=== PATIENT | female | born 1950 | race Caucasian/White ===

== ENCOUNTER 2018-10-02 17:19 | Inpatient (IN) | payer MEDICARE, MEDICAID ==
[~2018-10-02] VITALS: Ht 162.6 cm; Wt 72.6 kg
--- NOTE | 2018-10-02 18:00 | NUR ---
PT ROOMED TO ER BED 04. BIBRA FROM HOME C/O DIFFUSE ABDOMINAL PAIN X 4 DAYS. STATES CONSTIPATED AND LAST BOWEL MOVEMENT WAS 4 DAYS AGO. STABLE VITALS. AWAITING MD MINAYA.
--- NOTE | 2018-10-02 18:58 | NUR ---
DR CHING AT BEDSIDE FOR EVAL.
--- NOTE | 2018-10-02 19:15 | NUR ---
REPORT GIVEN TO KANDI HERNANDEZ FOR ANEUDY.
--- NOTE | 2018-10-02 19:20 | NUR ---
RADIOLOGY AT BEDSIDE FOR XRAY.
[2018-10-02] MEDS ORDERED: IV NS 0.9% 500 ML BAG IV ONE ×2 (19:30→21:30)
[2018-10-02] MEDS ORDERED: HYDROMORPHONE 1 MG/1 ML DISP.SYRIN IV ONE (19:30)
[2018-10-02] MEDS ORDERED: HYDROMORPHONE INJ 0.5 MG/0.5 ML SYRINGE ONE ×2 (19:39→21:16)
[2018-10-02 19:52] LABS: BASOPHILS % (AUTO) 0.1 % (0.0-2.0); EOSINOPHILS % (AUTO) 0.3 % (0.0-6.0); HEMATOCRIT 36 % (33-45); HEMOGLOBIN 12.3 g/dL (11.5-14.8); LYMPHOCYTES # (AUTO) 0.7 /CMM (0.8-4.8); LYMPHOCYTES % (AUTO) 8.7 % (20.0-44.0); MEAN CORPUSCULAR HGB CONC 34 g/dl (31.0-36.0); MEAN CORPUSCULAR VOLUME 94 fL (82-100); MONOCYTES # (AUTO) 0.6 /CMM (0.1-1.30); MONOCYTES % (AUTO) 6.9 % (2.0-12.0); PLATELET COUNT (AUTO) 306 /CMM (150-450); RED BLOOD CELL COUNT(AUTO) 3.84 MIL/uL (4.0-5.2); WHITE BLOOD COUNT (AUTO) 8.4 K/uL (4.3-11.0)
[2018-10-02 20:09] LABS: CALCIUM, SERUM 9.7 mg/dL (8.5-10.1); CARBON DIOXIDE 22 mmol/L (21-32); CHLORIDE 102 mmol/L (98-107); CREATININE 1.8 mg/dL (0.6-1.3); GLUCOSE 112 mg/dL (74-106); POTASSIUM 3.5 mmol/L (3.5-5.1); SODIUM SERUM 135 mmol/L (136-145); UREA NITROGEN, BLOOD 47 mg/dL (7-18)
[2018-10-02 20:15] LABS: ALANINE AMINOTRANSFERASE 31 U/L (12-78); ALBUMIN 3.4 g/dL (3.4-5.0); ALKALINE PHOSPHATASE 193 U/L (46-116); ASPARTATE AMINOTRANSFERASE 48 U/L (15-37); BILIRUBIN,DIRECT 0.6 mg/dL (0.0-0.2); BILIRUBIN,TOTAL 1.2 mg/dL (0.2-1.0); LIPASE 38 U/L (73-393); TOTAL PROTEIN, SERUM 7.9 g/dL (6.4-8.2)
--- NOTE | 2018-10-02 20:19 | NUR ---
Radiology at bedside for consent for CT w/ contrast.
--- NOTE | 2018-10-02 20:30 | NUR ---
Pt taken to CT.
[2018-10-02] MEDS ORDERED: IOHEXOL-300 100 ML VIAL IV ONE (20:34)
[2018-10-02] MEDS ORDERED: CT SWABBABLE VALVE TRANS SET 1 EA INFUS.SET MC ONE (20:35)
[2018-10-02] MEDS ORDERED: IV NS 0.9% 250 ML IV ONE (20:35)
[2018-10-02 20:36] LABS: APPEARANCE,URINE Clear (CLEAR); BILIRUBIN,URINE SMALL (NEGATIVE); BLOOD, URINE Moderate Ery/uL (NEGATIVE); COLOR,URINE Yellow (YELLOW); KETONES,URINE Negative (NEGATIVE); LEUKOCYTE ESTERASE ,URINE Negative (NEGATIVE); NITRITE, URINE Negative (NEGATIVE); PROTEIN,URINE 100 mg/dl (NEGATIVE); UGLUCOSE Negative (NEGATIVE); UROBILINOGEN,URINE 0.2 EU/dL (0.2)
[2018-10-02 20:46] LABS: BACTERIA,URINE 1+ /HPF (None Seen); SQUAMOUS EPITHELIAL CELL,UR Few /HPF (None Seen)
--- NOTE | 2018-10-02 20:54 | NUR ---
Pt returned from CT and put on the monitor.
--- NOTE | 2018-10-02 21:00 | NUR ---
Pt yelling at the complaining, "nothing gets done in the hospital." Pt wanting water, but was told she is unable to drink anything until we recieve the results from the CT.
--- NOTE | 2018-10-02 21:14 | NUR ---
Pt complaining of pain in the abdomen and shoulder. ER MD aware. Will carry out orders.
[2018-10-02] MEDS ORDERED: HYDROMORPHONE INJ 0.5 MG/0.5 ML SYRINGE IV ONE (21:30)
--- NOTE | 2018-10-02 21:51 | NUR ---
Filer Repairer at bedside for lab draw.
[2018-10-02] MEDS ORDERED: PIPERACILLIN /TAZOBACTAM 3.375 G VIAL IV ONE (22:06)
--- NOTE | 2018-10-02 22:16 | NUR ---
Ultrasound at bedside.
[2018-10-02] MEDS ORDERED: PIPERACILLIN /TAZOBACTAM 3.375 G in IV D5W 50 ML IV ONE (22:30)
--- NOTE | 2018-10-02 22:33 | NUR ---
Called Dr Miguelito Smyth (Surgeon) and left a voicemail for call back.
--- NOTE | 2018-10-02 22:51 | NUR ---
Called [facility] for panel call and a page was sent out to Robyn Khan.
--- NOTE | 2018-10-02 23:33 | NUR ---
Report given to Constance HERNANDEZ for ANEUDY.
--- NOTE | 2018-10-03 | NUR ---
RECEIVED PT FROM E.R SERVICES VIA [facility] AT 0762 10/02/18. ADMIT TO MS. PT A/O X 3 WITH PERIOD OF FORGETFULNESS. RESPIRATIONS EVEN AND UNLABORED. STABLE, NO NAUSEA AND VOMITING. KEPT CLEAN, DRY AND COMFORTABLE. NURSING CARE RENDERED. PT IRRITABLE AND WANTED TO SLEEP UNABLE TO DO BODY FULL ASSESSMENT PT REFUSED TO BE TOUCH PT VERBALIZED "LEAVE ME ALONE I JUST WANNA REST" PT REFUSED REMOVE GOWN DESPITE EXPLAINING RISKS AND BENEFITS OFFERED 3 TIMES STILL REFUSED. HOSPITALIST AWARE. PT MAINTAIN ON NPO FOR MRCP PER PT SHE WILL SIGN CONSENT IN THE AM. WILL CONT TO MTR.
[2018-10-03 00:25] VITALS: BP 146/73
[2018-10-03] MEDS ORDERED: ZOLPIDEM TARTRATE 5 MG TABLET PO PRN (00:30)
[2018-10-03] MEDS ORDERED: ONDANSETRON HCL/PF 4 MG/2 ML VIAL IVP PRN (00:30)
[2018-10-03] MEDS ORDERED: MAGNESIUM HYDROXIDE 30 ML UDC PO PRN (00:30)
[2018-10-03] MEDS ORDERED: DEXTROSE 50%-WATER 50 ML DISP.SYRIN IV PRN (00:30)
[2018-10-03] MEDS ORDERED: ACETAMINOPHEN 325 MG TABLET PO PRN (00:30)
[2018-10-03] MEDS ORDERED: Z GUARD REMEDY 2 OZ OINT TP PRN (00:30)
[2018-10-03] MEDS: IV NS 0.9% 1,000 ML IV PRN ×2 (01:16→20:45)
[2018-10-03] MEDS: HYDROMORPHONE 1 MG/1 ML DISP.SYRIN IV PRN ×4 (02:45→20:38)
[2018-10-03] MEDS ORDERED: PIPERACILLIN /TAZOBACTAM 3.375 G in IV D5W 50 ML IV SCH (04:00)
[2018-10-03] MEDS ORDERED: PIPERACILLIN /TAZOBACTAM 3.375 G VIAL IV ONE (04:59)
[2018-10-03] MEDS ORDERED: PIPERACILLIN /TAZOBACTAM 3.375 G in IV D5W 50 ML IV ONE (05:00)
[2018-10-03] MEDS: INSULIN REGULAR, HUMAN 100 UNIT/ML 3 ML VIAL SQ PRN ×3 (05:29→23:47)
[2018-10-03] MEDS: BLOOD SUGAR DIAGNOSTIC 1 EACH STRIP IN SCH ×4 (05:29→23:47)
[2018-10-03 06:30] LABS: BASOPHILS % (AUTO) 0.1 % (0.0-2.0); EOSINOPHILS % (AUTO) 0.6 % (0.0-6.0); HEMATOCRIT 33 % (33-45); HEMOGLOBIN 11.4 g/dL (11.5-14.8); LYMPHOCYTES % (AUTO) 11.9 % (20.0-44.0); MEAN CORPUSCULAR HGB CONC 35 g/dl (31.0-36.0); MEAN CORPUSCULAR VOLUME 93 fL (82-100); MONOCYTES # (AUTO) 0.9 /CMM (0.1-1.30); MONOCYTES % (AUTO) 10.7 % (2.0-12.0); NEUTROPHILS # (AUTO) 6.7 /CMM (1.8-8.9); NEUTROPHILS % (AUTO) 76.7 % (43.0-81.0); PLATELET COUNT (AUTO) 292 /CMM (150-450); RED BLOOD CELL COUNT(AUTO) 3.54 MIL/uL (4.0-5.2); WHITE BLOOD COUNT (AUTO) 8.7 K/uL (4.3-11.0)
--- NOTE | 2018-10-03 06:38 | NUR ---
RN CLOSING NOTE PT IN BED ASLEEP AND EASILY AWAKEN A/O X 2-3 PERIOD OF FORGETFULNESS 02 SAT 95% TOLERATING ROOM AIR. STABLE CONDITION, NOT IN DISTRESS. RESPIRATIONS EVEN AND UNLABORED. NURSING CARE RENDERED, NO COMPLAIN OF PAIN AT THIS TIME. KEPT CLEAN AND DRY AND COMFORT, PT WANTS TO SIGN CONSENT LATER MORNING FOR MRCP. MAINTAINS NPO. PT STILL REFUSED FULL SKIN BODY ASSESSMENT. SAFETY MEASURES IN PLACE, CALL LIGHT WITHIN REACH. WILL ENDORSE TO FLUE LINING DIPPER FOR ANEUDY.
[2018-10-03 06:48] LABS: ALBUMIN 2.9 g/dL (3.4-5.0); BILIRUBIN,TOTAL 1.3 mg/dL (0.2-1.0); CALCIUM, SERUM 8.9 mg/dL (8.5-10.1); CREATININE 1.1 mg/dL (0.6-1.3); PHOSPHORUS 2.4 mg/dL (2.5-4.9); POTASSIUM 3.2 mmol/L (3.5-5.1); TOTAL PROTEIN, SERUM 6.8 g/dL (6.4-8.2)
--- NOTE | 2018-10-03 07:20 | NUR ---
MS/RN OPENING NOTE PATIENT IN BED IN STABLE CONDITION. A/O X 2-3 WITH EPISODES OF FORGETFULNESS. NO SIGNS OF ACUTE DISTRESS. NO COMPLAIN OF PAIN OR DISCOMFORT. NPO STATUS AT THIS TIME SECONDARY TO SCHEDULE MRCP. ALL NEEDS ATTENDED TO. CALL LIGHT WITHIN REACH. WILL CONTINUE TO MONITOR TO ENSURE SAFETY.
[2018-10-03 08:00] VITALS: BP 148/73
[2018-10-03] MEDS ORDERED: AMLO10TA7 PO (08:29)
[2018-10-03] MEDS ORDERED: LOSA1TAB39 PO (08:29)
[2018-10-03] MEDS ORDERED: DIAZ5TAB4 PO (08:29)
[2018-10-03] MEDS ORDERED: HYDR-3980 PO (08:29)
[2018-10-03] MEDS ORDERED: CYCL5TAB PO (08:29)
[2018-10-03] MEDS ORDERED: FLUO-119 PO (08:29)
[2018-10-03] MEDS ORDERED: SIMV20TA6 PO (08:29)
[2018-10-03] MEDS ORDERED: NAPR-1009 PO (08:29)
[2018-10-03] MEDS: PIPERACILLIN /TAZOBACTAM 3.375 G in IV D5W 100 ML IV SCH ×2 (09:11→19:46)
[2018-10-03] MEDS: POTASSIUM CL. PREMIX PERIPHER. 50 ML IV SCH ×4 (11:50→14:47)
--- NOTE | 2018-10-03 13:10 | NUR ---
MS/RN PATIENT LEFT FOR MRCP VIA WHEELCHAIR IN STABLE CONDITION.
[2018-10-03] MEDS ORDERED: POTASSIUM PHOSPHATE MM 7.5 MMOL in IV D5W 100 ML IV SCH (15:00)
--- NOTE | 2018-10-03 15:30 | NUR ---
MS/RN PATIENT SELF RESPONSIBLE LEFT AMA IN STABLE CONDITION. A/O X 3. NO SIGNS OF ACUTE DISTRESS. NO COMPLAIN OF PAIN OR DISCOMFORT. EXPLAINED PATIENT RISKS AND BENEFITS OF LEAVING AMA PER PATIENT "I DON'T CARE, I WANT TO LEAVE. I HAVEN'T ATE ANYTHING SINCE YESTERDAY, EXPLAINED PATIENT NPO STATUS IS NEEDED DUE TO DIAGNOSTICS TESTING MRCP ORDERED." STILL CONTINUE TO REFUSE TO STAY AND WANTS TO LEAVE AMA. NURSING SECURITY OPERATIONS ANALYST AND DR EMELIA DE JESUS MADE AWARE.
--- NOTE | 2018-10-03 19:35 | NUR ---
RN NOTES RECEIVE PT [facility]IA [employer] AT 1923 A/O X 2-3 WITH PERIOD OF FORGETFULNESS, IN STABLE CONDITION, NOT IN DISTRESS, SAFETY MEASURES IN PLACE. WILL CONTINUE TO MONITOR.
[2018-10-03 20:00] VITALS: BP 143/87
--- NOTE | 2018-10-04 00:30 | NUR ---
BLD SUGAR 112 MG/DL NO SLIDING SCALE
[2018-10-04] MEDS: HYDROMORPHONE 1 MG/1 ML DISP.SYRIN IV PRN ×2 (01:23→17:19)
[2018-10-04] MEDS: PIPERACILLIN /TAZOBACTAM 3.375 G in IV D5W 100 ML IV SCH ×3 (01:24→17:20)
[2018-10-04] MEDS: BLOOD SUGAR DIAGNOSTIC 1 EACH STRIP IN SCH ×4 (05:15→23:05)
[2018-10-04] MEDS: INSULIN REGULAR, HUMAN 100 UNIT/ML 3 ML VIAL SQ PRN (05:15)
--- NOTE | 2018-10-04 06:11 | NUR ---
RN CLOSING NOTE ASLEEP AND EASILY AWAKEN, RESPIRATIONS EVEN AND UNLABORED. 97% TOLERATING ROOM AIR. NO COMPLAIN OF PAIN AT THIS TIME. IN STABLE CONDITION, NOT IN DISTRESS. NURSING CARE RENDERED, KEPT CLEAN AND DRY AND COMFORT, NEEDS ATTENDED AND ANTICIPATED. FOR HIDA SCAN WILL FF. UP, WILL ENDORSE TO AM RN.
[2018-10-04 08:00] VITALS: BP 137/87
--- NOTE | 2018-10-04 08:05 | NUR ---
MS RN OPENING NOTE PATIENT IN BED AWAKE ALERT AND ORIENTED x4. CALL LIGHT WITHIN REACH. SAFETY MEASURES IMPLEMENTED. ABLE TO COMMUNICATE NEEDS. IV ON RIGHT HAND INTACT AND PATENT WITH IV FLUIDS RUNNING AT THIS TIME. NO SOB OR DISTRESS NOTED ON ROOM AIR TOLERATING WELL. NO FACIAL GRIMACING NOTED FOR PAIN. NPO AT THIS TIME PER MD ORDERS. BLOOD SUGAR TO BE CHECKED THROUGHOUT SHIFT. WILL CONTINUE TO MONITOR THROUGHOUT SHIFT
--- NOTE | 2018-10-04 11:40 | NUR ---
MS RN NOTE BS-93 NO INSULIN NEEDED. NPO AT THIS TIME. SCHEDULED FOR HIDA SCAN THIS AFTERNOON, CONSENTS IN CHART
[2018-10-04 16:00] VITALS: BP 155/92
--- NOTE | 2018-10-04 17:04 | NUR ---
NM: HIDA SCAN WAS COMPLETED. TECH:RB.
--- NOTE | 2018-10-04 17:24 | NUR ---
MS RN NOTE PATIENT HAD HID SCAN DONE THIS EVENING. AWAITING RESULTS AT THIS TIME. BLOOD SUGAR-80, STILL NPO. PATIENT REQUESTING DILAUDID 1 MG IV PRN FOR ABDOMINAL PAIN 10/10 AND NOTED WITH FACIAL GRIMACING. REPOSITIONED PATIENT, STILL IN PAIN. MEDICATION GIVEN WILL REASSESS EFFECTIVENESS
--- NOTE | 2018-10-04 18:53 | NUR ---
MS RN CLOSING NOTE PATIENT RESTING COMFORTABLY. CURRENTLY NPO AT THIS TIME, AWAITING FOR MD CALL BACK FOR DIET STATUS. CALL LIGHT WITHIN REACH AT ALL TIMES. SAFETY MEASURES IMPLEMENTED. HIDA SCAN DONE. ALL NEEDS MET. IV INTACT AND PATENT NO REDNESS OR SWELLING NOTED. NO SOB OR DISTRESS NOTED ON ROOM AIR TOLERATING WELL. NO FACIAL GRIMACING NOTED AT THIS TIME. BLOOD SUGAR CHECKS THROUGHOUT SHIFT. WILL ENDORSE TO ANALYSIS ANALYST NURSE FOR ANEUDY
--- NOTE | 2018-10-04 19:30 | NUR ---
RECEIVED PATIENT IN BED AWAKE, AO X 3, ABLE TO MAKE NEEDS KNOWN. NO ACUTE DISTRESS NOTED. MONITORED FOR PAIN. IV SITE PATENT, INTACT; IVF INFUSING ORDERED. SAFETY REMINDERS GIVEN. ON LOW BED WITH BILATERAL UPPER SIDE RAILS UP. CALL VERDUGO WITHIN EASY REACH. WILL CONTINUE TO MONITOR.
[2018-10-04 20:00] VITALS: BP 159/81
[2018-10-04] MEDS: HYDROCODONE/APAP 5/325MG 1 EACH TABLET PO PRN (21:40)
[2018-10-04] MEDS: IV NS 0.9% 1,000 ML IV PRN (22:53)
[2018-10-05] MEDS: HYDROMORPHONE 1 MG/1 ML DISP.SYRIN IV PRN ×2 (00:58→09:08)
[2018-10-05] MEDS: PIPERACILLIN /TAZOBACTAM 3.375 G in IV D5W 100 ML IV SCH (01:04)
[2018-10-05] MEDS: BLOOD SUGAR DIAGNOSTIC 1 EACH STRIP IN SCH ×3 (06:19→17:12)
[2018-10-05 06:27] LABS: BASOPHILS % (AUTO) 0.2 % (0.0-2.0); EOSINOPHILS % (AUTO) 3.1 % (0.0-6.0); HEMATOCRIT 29 % (33-45); HEMOGLOBIN 10.1 g/dL (11.5-14.8); LYMPHOCYTES # (AUTO) 1.4 /CMM (0.8-4.8); LYMPHOCYTES % (AUTO) 22.7 % (20.0-44.0); MEAN CORPUSCULAR HGB CONC 35 g/dl (31.0-36.0); MEAN CORPUSCULAR VOLUME 92 fL (82-100); MONOCYTES # (AUTO) 0.8 /CMM (0.1-1.30); MONOCYTES % (AUTO) 12.2 % (2.0-12.0); NEUTROPHILS # (AUTO) 3.9 /CMM (1.8-8.9); NEUTROPHILS % (AUTO) 61.8 % (43.0-81.0); PLATELET COUNT (AUTO) 360 /CMM (150-450); RED BLOOD CELL COUNT(AUTO) 3.16 MIL/uL (4.0-5.2); WHITE BLOOD COUNT (AUTO) 6.3 K/uL (4.3-11.0)
--- NOTE | 2018-10-05 06:30 | NUR ---
PATIENT ASLEEP; RESPIRATIONS EVEN. NO SIGNS OF PAIN NOTED. NO SYMPTOMS OF HYPER/HYPOGLYCEMIA. NPO SINCE MIDNIGHT. DUE MEDS GIVEN WITH NO ASE NOTED. IVF INFUSING ORDERED. NEEDS ATTENDED. KEPT CLEAN, DRY, AND COMFORTABLE. SAFETY PRECAUTIONS AND COMFORT MEASURES IN PLACE. WILL GIVE REPORT TO DAY SHIFT FOR CONTINUITY OF CARE.
[2018-10-05 06:38] LABS: ALBUMIN 2.3 g/dL (3.4-5.0); BILIRUBIN,TOTAL 1.7 mg/dL (0.2-1.0); CALCIUM, SERUM 8.4 mg/dL (8.5-10.1); CREATININE 0.8 mg/dL (0.6-1.3); TOTAL PROTEIN, SERUM 6.2 g/dL (6.4-8.2)
[2018-10-05 06:41] LABS: POTASSIUM 2.8 mmol/L (3.5-5.1)
--- NOTE | 2018-10-05 06:55 | NUR ---
NOTIFIED INDU PÉREZ OF K LEVEL 2.8 WITH NEW ORDER KG KDUR 60 MEQ PO X ONE; NOTED AND CARRIED OUT.
[2018-10-05] MEDS ORDERED: POTASSIUM CHLORIDE 20 MEQ TAB.PRT.SR PO ONE (07:18)
--- NOTE | 2018-10-05 07:35 | NUR ---
MS RN OPENING NOTE RECEIVED PATIENT AWAKE ALERT AND ORIENTED x3 PERIODS OF FORGETFULNESS, ORIENTATION NEEDED. CALL LIGHT WITHIN REACH. SAFETY MEASURES IMPLEMENTED. ABLE TO COMMUNICATE NEEDS. IV INTACT AND PATENT WITH IV FLUIDS RUNNING AT THIS TIME. NO FACIAL GRIMACING NOTED. NO SOB OR DISTRESS NOTED ON ROOM AIR TOLERATING WELL. BLOOD SUGAR CHECKS THROUGHOUT SHIFT. WILL CONTINUE TO MONITOR
[2018-10-05 08:00] VITALS: BP 154/78
--- NOTE | 2018-10-05 08:05 | NUR ---
MS RN NOTE CALLED CJ RING NP IN REGARDS TO POTASSIUM OF 2.8 SINCE PATIENT IS NPO, PER WOOD GOUGER NURSE ORDER WAS RECEIVED FROM ORNAMENTAL PLASTERER HELPER FOR 60 MEQ PO. ORDER FOR PO CANCELLED. RECEIVED ORDER FROM ELISA CORONA FOR POTASSIUM CHLORIDE 60 MEQ IV OVER 6 HOURS. ORDER NOTED AND CARRIED OUT.
--- NOTE | 2018-10-05 09:00 | NUR ---
MS RN NOTE ELECTROLYTE REPLACEMENT FOR POTASSIUM BAG 1 OF 6 STARTED
[2018-10-05] MEDS: POTASSIUM CL. PREMIX PERIPHER. 50 ML IV SCH ×6 (09:08→16:26)
--- NOTE | 2018-10-05 10:00 | NUR ---
MS RN NOTE ELECTROLYTE REPLACEMENT FOR POTASSIUM BAG 2 OF 6 STARTED
--- NOTE | 2018-10-05 11:00 | NUR ---
MS RN NOTE ELECTROLYTE REPLACEMENT FOR POTASSIUM BAG 3 OF 6 STARTED
[2018-10-05] MEDS: PIPERACILLIN /TAZOBACTAM 3.375 G in IV D5W 50 ML IV SCH ×2 (11:32→17:19)
--- NOTE | 2018-10-05 11:36 | NUR ---
MS RN NOTE BS-107 NO INSULIN REQUIRED
--- NOTE | 2018-10-05 12:23 | NUR ---
MS RN NOTE ELECTROLYTE REPLACEMENT POTASSIUM BAG 4 OF 6 GIVEN AT THIS TIME
[2018-10-05] MEDS ORDERED: PANTOPRAZOLE 40 MG VIAL IV SCH (14:00)
--- NOTE | 2018-10-05 14:18 | NUR ---
MS RN NOTE ORDER RECEIVED FROM DR. ANDREW FOR MIRALAX 17G BID. ORDER NOTED AND CARRIED OUT.
--- NOTE | 2018-10-05 14:40 | NUR ---
MS RN NOTE PATIENT BACK FROM EGD. PATIENT STABLE AT THIS TIME. WILL CONTINUE CARE
[2018-10-05] MEDS: SUCRALFATE 1 G/10 ML UDC GT SCH ×2 (15:13→16:30)
[2018-10-05 16:00] VITALS: BP 136/91
[2018-10-05] MEDS ORDERED: POLYETHYLENE GLYCOL 3350 17 GM POWD.PACK PO SCH (17:00)
--- NOTE | 2018-10-05 17:21 | NUR ---
MS RN NOTE BS-128 NO INSULIN NEEDED
--- NOTE | 2018-10-05 18:42 | NUR ---
MS RN CLOSING NOTE PATIENT RESTING COMFORTABLY IN BED AT THIS TIME. S/P EGD WITH DR. ANDREW. ALL DUE MEDICATIONS GIVEN. ALL NEEDS MET. ALERT AND ORIENTED x3, FORGETFUL. ABLE TO COMMUNICATE NEEDS. IV INTACT AND PATENT NO REDNESS OR SWELLING NOTED, POTASSIUM-2.8 REPLACED WITH 60 MEQ IV POTASSIUM THROUGHOUT SHIFT. NO SOB OR DISTRESS NOTED ON ROOM AIR. DISCHARGE PENDING AT THIS TIME, PATIENT WILL RECEIVE PRESCRIPTION FROM MD. WILL ENDORSE TO INFORMATICS NURSE NURSE FOR ANEUDY
[2018-10-05] MEDS: HYDROCODONE/APAP 5/325MG 1 EACH TABLET PO PRN (19:47)
--- NOTE | 2018-10-05 20:00 | NUR ---
MSRN DISCHARGED INSTRUCTIONS WELL UNDERSTOOD BY PATIENT. SIGNED AND ACKNOWLEDGED. RIGHT HAND HEPLOCK TAKEN OUT, ARMBAND CUT OFF. WHEELED OUT BY SOIL CONSERVATION TECHNICIAN [employer] BY ROOMATE , LEFT VIA PRIVATE CAR.
== END 2018-10-05 20:00 | disposition home or self-care (01) | DRG 383 ==
LOC: ER 17:21 → MEDSG2 23:42 → UNDODISIN 10-03 15:30 → MEDSG2 10-03 18:42
PROVIDERS: ADMIT Nurse Practitioner Acute Care; ATTEND Nurse Practitioner Acute Care
PROC: 0DB68ZX Excision of Stomach, Via Natural or Artificial Opening Endoscopic, Diagnostic (ICD-10-PCS; principal; 2018-10-05)
DX: K25.9 Gastric ulcer, unspecified as acute or chronic, without hemorrhage or perforation (principal); N17.0 Acute kidney failure with tubular necrosis; E87.1 Hypo-osmolality and hyponatremia; N39.0 Urinary tract infection, site not specified; K29.70 Gastritis, unspecified, without bleeding; E86.0 Dehydration; R74.0 Nonspecific elevation of levels of transaminase and lactic acid dehydrogenase [LDH]; E87.6 Hypokalemia; I10 Essential (primary) hypertension; E66.3 Overweight; Z68.28 Body mass index [BMI] 28.0-28.9, adult; Z96.642 Presence of left artificial hip joint; K81.9 Cholecystitis, unspecified; E88.09 Other disorders of plasma-protein metabolism, not elsewhere classified
CPT/HCPCS: 36415; 71045-TC; 74181-TC; 76705-TC; 78226; 80048-TC; 80053-TC; 80076-TC; 81000-TC; 82962-TC; 83605-TC; 83690-TC; 83735-TC; 84100-TC; 84484-TC; 85025-TC; 87081-TC; 87086-TC; 88305-TC; 88313-TC; 88342; A6402; A9537; C9113; G0378; J1170; J1815; J2543; J2704; J3480; J3490; J7030; J7040; J7050; J7060; Q9967

== ENCOUNTER 2019-03-13 04:58 | Emergency (ER) | payer MEDICARE, MEDICAID ==
[~2019-03-13] VITALS: Ht 162.6 cm; Wt 72.6 kg
[~2019-03-13 04:58] MED LIST: AMLO10TA7 PO; CYCL5TAB PO; DIAZ5TAB4 PO; FLUO-119 PO; HYDR-3980 PO; LOSA1TAB39 PO; NAPR-1009 PO; SIMV20TA6 PO
--- NOTE | 2019-03-13 05:20 | NUR ---
CORDELL FROM HOME. AAOX4. NO RESP DISTRESS BREATHING EVEN AND UNLABORED. C/O NECK PAIN 06/17/ PT REPORTS THAT WHEN SHE WOKE UP SHE FELT THE PAIN ON HER NECK. WHILE REACHING FOR HER COFFEE PT REPORTS FEELING DIZZY AND FELL ON HER RIGHT SIDE. PT DENIES PASSING OUT. TO ER BED 10. MD AT BEDSIDE. AWAITING ORDERS
[2019-03-13] MEDS ORDERED: LORAZEPAM INJ 2 MG/ML VIAL IV ONE (05:30)
[2019-03-13] MEDS ORDERED: HYDROMORPHONE INJ 2 MG/ML DISP.SYRIN IV ONE (05:30)
[2019-03-13] MEDS ORDERED: ONDANSETRON HCL/PF 4 MG/2 ML VIAL IVP ONE (05:30)
[2019-03-13] MEDS ORDERED: ONDANSETRON HCL/PF 4 MG/2 ML VIAL ONE (05:38)
[2019-03-13] MEDS ORDERED: HYDROMORPHONE 1 MG/1 ML DISP.SYRIN ONE (05:38)
[2019-03-13 05:39] LABS: BASOPHILS # (AUTO) 0.1 /CMM (0.0-0.2); BASOPHILS % (AUTO) 0.4 % (0.0-2.0); EOSINOPHILS % (AUTO) 0.6 % (0.0-6.0); HEMATOCRIT 37 % (33-45); HEMOGLOBIN 12.5 g/dL (11.5-14.8); LYMPHOCYTES % (AUTO) 13.2 % (20.0-44.0); MEAN CORPUSCULAR HGB CONC 34 g/dl (31.0-36.0); MEAN CORPUSCULAR VOLUME 90 fL (82-100); MONOCYTES # (AUTO) 1.5 /CMM (0.1-1.30); MONOCYTES % (AUTO) 10.2 % (2.0-12.0); NEUTROPHILS # (AUTO) 11.3 /CMM (1.8-8.9); NEUTROPHILS % (AUTO) 75.6 % (43.0-81.0); PLATELET COUNT (AUTO) 380 /CMM (150-450); RED BLOOD CELL COUNT(AUTO) 4.14 MIL/uL (4.0-5.2); WHITE BLOOD COUNT (AUTO) 14.9 K/uL (4.3-11.0)
[2019-03-13] MEDS ORDERED: LORAZEPAM INJ 2 MG/ML VIAL ONE (05:39)
[2019-03-13 05:49] LABS: CALCIUM, SERUM 9.3 mg/dL (8.5-10.1); CARBON DIOXIDE 28 mmol/L (21-32); CHLORIDE 98 mmol/L (98-107); GLUCOSE 114 mg/dL (74-106); POTASSIUM 3.6 mmol/L (3.5-5.1); SODIUM SERUM 136 mmol/L (136-145); UREA NITROGEN, BLOOD 24 mg/dL (7-18)
--- NOTE | 2019-03-13 05:55 | NUR ---
IV LINE OBTAINED ON R AC 20G. BLOOD DRAWN AND GIVEN TO GIMP TACKER AT BEDSIDE
[2019-03-13 05:56] LABS: ALANINE AMINOTRANSFERASE 32 U/L (12-78); ALBUMIN 3.7 g/dL (3.4-5.0); ALKALINE PHOSPHATASE 114 U/L (46-116); ASPARTATE AMINOTRANSFERASE 21 U/L (15-37); BILIRUBIN,DIRECT 0.1 mg/dL (0.0-0.2); BILIRUBIN,TOTAL 0.5 mg/dL (0.2-1.0); TOTAL PROTEIN, SERUM 8.1 g/dL (6.4-8.2)
--- NOTE | 2019-03-13 06:46 | NUR ---
Patient discharged to home in stable condition. Written and verbal after care instructions given. Patient verbalizes understanding of instruction.IV removed. Catheter intact and site benign. Pressure and 4x4 applied to site. No bleeding noted. Pt ambulatory with a steady gait
[2019-03-13 06:54] VITALS: BP 135/78
== END 2019-03-13 06:55 | disposition home or self-care (01) ==
LOC: ER 05:03
DX: M54.2 Cervicalgia (principal); M25.511 Pain in right shoulder; I10 Essential (primary) hypertension; F17.200 Nicotine dependence, unspecified, uncomplicated; Z96.643 Presence of artificial hip joint, bilateral; Z90.710 Acquired absence of both cervix and uterus; Z60.2 Problems related to living alone; Z79.899 Other long term (current) drug therapy
CPT/HCPCS: 36415; 71045; 80048; 80076; 84484; 85025; 85730; 93005; 96374; 96375; 99284; J1170; J2060; J2405

== ENCOUNTER 2020-01-23 20:20 | Inpatient (IN) | payer MEDICARE, BC ==
[~2020-01-23] VITALS: Ht 162.6 cm; Wt 73.5 kg
[~2020-01-23 20:20] MED LIST changes: -FLUO-119 PO; +FLUO10CA27 PO; +SIMV-46 PO; -SIMV20TA6 PO
--- NOTE | 2020-01-23 20:39 | NUR ---
PATIENT CAME FROM HOME BIB RA C/O WEAKNESS. PATIENT HAS HISTORY OF FALLS. PER RA REPORT, WAS FOUND ON THE FLOOR FOR ABOUT 1 HOUR. PATIENT HAS C/O ABOUT ELBOW PAIN. AAOX4. NO SOB. BREATHING EVENLY AND UNLABORED ON ROOM AIR. CONNECTED TO MONITOR.
[2020-01-23] MEDS ORDERED: MORPHINE SULFATE INJ 2 MG/ML DISP.SYRIN ONE (20:46)
[2020-01-23] MEDS ORDERED: ONDANSETRON HCL/PF 4 MG/2 ML VIAL ONE (20:46)
[2020-01-23] MEDS ORDERED: MORPHINE SULFATE INJ 4 MG/ML DISP.SYRIN ONE (20:46)
[2020-01-23] MEDS ORDERED: MORPHINE SULFATE INJ 2 MG/ML DISP.SYRIN IV ONE (21:00)
[2020-01-23] MEDS ORDERED: IV NS 0.9% 1,000 ML BAG IV ONE (21:00)
[2020-01-23] MEDS ORDERED: ONDANSETRON HCL/PF 4 MG/2 ML VIAL IVP ONE (21:00)
--- NOTE | 2020-01-23 21:02 | NUR ---
BLOOD DRAWN AND SENT TO THE LAB.
[2020-01-23 21:16] LABS: BASOPHILS % (AUTO) 0.2 % (0.0-2.0); EOSINOPHILS % (AUTO) 0.1 % (0.0-6.0); HEMATOCRIT 37 % (33-45); HEMOGLOBIN 12.5 g/dL (11.5-14.8); LYMPHOCYTES # (AUTO) 0.9 /CMM (0.8-4.8); LYMPHOCYTES % (AUTO) 5.8 % (20.0-44.0); MEAN CORPUSCULAR HGB CONC 34 g/dl (31.0-36.0); MEAN CORPUSCULAR VOLUME 92 fL (82-100); MONOCYTES # (AUTO) 1.1 /CMM (0.1-1.30); MONOCYTES % (AUTO) 6.8 % (2.0-12.0); NEUTROPHILS # (AUTO) 13.6 /CMM (1.8-8.9); NEUTROPHILS % (AUTO) 87.1 % (43.0-81.0); PLATELET COUNT (AUTO) 343 /CMM (150-450); RED BLOOD CELL COUNT(AUTO) 4.05 MIL/uL (4.0-5.2); WHITE BLOOD COUNT (AUTO) 15.7 K/uL (4.3-11.0)
[2020-01-23 21:23] LABS: CALCIUM, SERUM 9.9 mg/dL (8.5-10.1); CARBON DIOXIDE 25 mmol/L (21-32); CHLORIDE 100 mmol/L (98-107); CREATININE 0.9 mg/dL (0.6-1.3); GLUCOSE 130 mg/dL (74-106); POTASSIUM 3.3 mmol/L (3.5-5.1); SODIUM SERUM 134 mmol/L (136-145); UREA NITROGEN, BLOOD 19 mg/dL (7-18)
[2020-01-23 21:28] LABS: ALANINE AMINOTRANSFERASE 35 U/L (12-78); ALBUMIN 3.8 g/dL (3.4-5.0); ALKALINE PHOSPHATASE 106 U/L (46-116); ASPARTATE AMINOTRANSFERASE 50 U/L (15-37); BILIRUBIN,DIRECT 0.1 mg/dL (0.0-0.2); BILIRUBIN,TOTAL 0.7 mg/dL (0.2-1.0); TOTAL PROTEIN, SERUM 8.2 g/dL (6.4-8.2)
--- NOTE | 2020-01-23 21:35 | NUR ---
PATIENT RETURNED FROM CT
--- NOTE | 2020-01-23 22:04 | NUR ---
JOSE SAMSONMEDICAL DRIVER AT BEDSIDE FOR EVALUATION
[2020-01-23] MEDS ORDERED: DIAZEPAM 5 MG TABLET PO PRN (22:30)
[2020-01-23] MEDS ORDERED: ONDANSETRON HCL/PF 4 MG/2 ML VIAL IVP PRN (22:30)
[2020-01-23] MEDS ORDERED: ACETAMINOPHEN 325 MG TABLET PO PRN (22:30)
[2020-01-23] MEDS ORDERED: MAG HYDROX/AL HYDROX/SIMETH 30 ML UDC PO PRN (22:30)
[2020-01-23] MEDS ORDERED: MAGNESIUM HYDROXIDE 30 ML UDC PO PRN (22:30)
--- NOTE | 2020-01-23 22:55 | NUR ---
URINE COLLECTED AND SENT TO LAB
[2020-01-23] MEDS ORDERED: POTASSIUM CHLORIDE 20 MEQ TAB.PRT.SR PO ONE (23:00)
--- NOTE | 2020-01-23 23:06 | NUR ---
REPORT GIVEN TO LETY HERNANDEZ FOR ANEUDY.
[2020-01-23 23:15] VITALS: BP 157/89
--- NOTE | 2020-01-23 23:15 | NUR ---
TELE/RN ADMITTING NOTES: RECEIVED REPORT FROM DUTCH REEVES NURSE. PT ARRIVED TO THE UNIT AT 2315 VIA GURNEY UNDER ACLS PROTOCOL. ON 2L OF OXYGEN VIA NC, NO SOB NOTED, NO S/S OF ACUTE DISTRESS, BREATHING EVEN AND UNLABORED. HAS MODERATE LEVEL OF PAIN ON HER BACK, NECK AND SHOULDERS, YET TOLERABLE AT THIS TIME. ON TELE MONITORING WITH READING OF SR WITH HR OF 90S. PATIENT IS A/OX4 BUT HAS PERIODS OF CONFUSION. VERBALLY RESPONSIVE AND ABLE TO MAKE NEEDS KNOWN. FULL CODE. ORIENTED TO UNIT AND STAFF. INFORMED ABOUT PLAN OF CARE. NOTED WITH MULTIPLE ABRASIONS ON BILATERAL ELBOWS AND KNEES. REDNESS PRESENT ON THE LEFT HIP. PLACED MEPILEX FOR NOW. THUMB IS SWELLING. PER PT "I GOT THEM FROM STUMBLING". ALL PHOTOS TAKEN AND PLACED IN CHART. WOUND CONSULT ORDERED. PT. HAS HISTORY OF FALLS. FALL PRECAUTION INITIATED. ON BED REST FOR NOW DUE TO WEAKNESS. PT EVAL TO BE DONE IN THE MORNING. NEURO CONSULT, AND NEPHRO CONSULT ORDERED. PT BELONGINGS LIST CHECKED. INITIAL VS TAKEN. BP: 157/89 HR: 113. TEMP: 98.8 O2 SAT: 98% ON 2L OF OXYGEN VIA NC. IV PRESENT ON THE RIGHT AC #20G. SAFETY MEASURES INITIATED. BED IN LOW, LOCKED POSITION WITH SR UP X2. CALL LIGHT WITHIN REACH. WILL CONTINUE TO MONITOR ACCORDINGLY.
[2020-01-23 23:21] LABS: APPEARANCE,URINE CLEAR (CLEAR); BILIRUBIN,URINE SMALL (NEGATIVE); BLOOD, URINE SMALL Ery/uL (NEGATIVE); COLOR,URINE YELLOW (YELLOW); KETONES,URINE 15 (NEGATIVE); LEUKOCYTE ESTERASE ,URINE NEGATIVE (NEGATIVE); NITRITE, URINE NEGATIVE (NEGATIVE); PROTEIN,URINE 30 mg/dl (NEGATIVE); UGLUCOSE NEGATIVE (NEGATIVE); UROBILINOGEN,URINE 0.2 EU/dL (0.2)
[2020-01-23 23:37] LABS: BACTERIA,URINE None seen /HPF (None Seen); SQUAMOUS EPITHELIAL CELL,UR Few /HPF (None Seen); WBC,URINE 0-2 /HPF (0-3)
[2020-01-23] MEDS: NICOTINE PATCH (14MG) 14 MG PATCH.TD24 TD SCH (23:54)
[2020-01-24] MEDS: IV NS 0.9% 1,000 ML IV PRN ×2 (00:09→19:15)
[2020-01-24] MEDS: MORPHINE SULFATE INJ 2 MG/ML DISP.SYRIN IV PRN ×2 (00:23→21:36)
--- NOTE | 2020-01-24 00:30 | NUR ---
MS/RN NOTES: PT COMPLAINED OF LEVEL 8 PAIN ON HER BACK, SHOULDERS, AND NECK. ACHING AND STIFF IN QUALITY. PER PT "I NEED SOMETHING STRONGER THAN NORCO" ADMINISTERED 2MG OF MORPHINE IVP. BP:157/89 HR:113. PT IS STABLE. WILL REASSESS PAIN AND CONTINUE MONITORING. Addendum: 01/24/20 at 0526 by LETY SANCHEZ RN BRIA/MARY NOTES
--- NOTE | 2020-01-24 01:10 | NUR ---
MS/RN NOTES: PT. FALLING ASLEEP. AROUSABLE. NO COMPLAINS OF PAIN AT THIS TIME. PAIN MED EFFECTIVE. WILL CONTINUE TO MONITOR. Addendum: 01/24/20 at 0513 by LETY SANCHEZ RN BRIA/MARY NOTES
[2020-01-24 04:00] VITALS: BP 116/68
--- NOTE | 2020-01-24 04:00 | NUR ---
TELE/RN NOTES: PT. IS AWAKE IN BED, WANTING TO GET UP AND ASKING FOR A CUP OF COFFEE. PER PT. "YOU BETTER GET ME SOME COFFEE SO I CAN GET UP IN THIS FINE MORNING. I WANNA WALK BY MYSELF OUTSIDE" EXPLAINED TO PT IT'S 4AM AND WE CAN'T GIVE HER SOME COFFEE FOR NOW AND SHE HAS TO BE SEEN BY PT FIRST BEFORE LETTING HER WALK ALONE. WILL KEEP MONITORING.
--- NOTE | 2020-01-24 07:44 | NUR ---
TELE/RN CLOSING NOTES: PT. ON BED RESTING COMFORTABLY. REMAINS A/OX4. WITH PERIODS OF CONFUSION AT TIMES. NEEDS CONSTANT REORIENTATION. ON 2L OF OXYGEN VIA NC SATURATING AT 97%, NO SOB NOTED, NO S/S OF ACUTE DISTRESS, BREATHING EVEN AND UNLABORED. NO C/O PAIN AT THIS TIME. ON TELE MONITORING WITH READING OF SR WITH HR OF 90S. VERBALLY RESPONSIVE AND ABLE TO MAKE NEEDS KNOWN. WOUND CONSULT ORDERED. FALL PRECAUTIONS ON. PT EVAL TODAY. NEURO CONSULT TODAY. SAFETY MEASURES INITIATED. BED IN LOW, LOCKED POSITION WITH SR UP X2. CALL LIGHT WITHIN REACH. WILL ENDORSE TO DAY SHIFT FOR ANEUDY.
[2020-01-24] MEDS: LOSARTAN/HCTZ 50-12.5MG/ 1 EA TABLET PO SCH (09:00)
[2020-01-24] MEDS: AMLODIPINE BESYLATE 10 MG TABLET PO SCH (09:00)
[2020-01-24 09:25] VITALS: BP 111/63
[2020-01-24] MEDS: NAPROXEN 500 MG TABLET PO SCH ×2 (10:21→17:00)
[2020-01-24] MEDS: NICOTINE PATCH (14MG) 14 MG PATCH.TD24 TD SCH (10:21)
[2020-01-24] MEDS: SIMVASTATIN 20 MG TABLET PO SCH (10:21)
[2020-01-24] MEDS: CYCLOBENZAPRINE 10 MG TABLET PO SCH ×3 (10:21→18:23)
[2020-01-24] MEDS: Fluoxetine 10 mg capsule PO SCH (10:22)
[2020-01-24] MEDS: HYDROCODONE/APAP 10/325MG 1 EA TABLET PO PRN ×2 (12:11→18:23)
--- NOTE | 2020-01-24 12:11 | NUR ---
TELE/RN NOTE THE PATIENT COMPLAINS OF GENERALIZED BODY PAIN 04/17. NORCO 10 1 TAB PO IS GIVEN. WILL CONTINUE TO MONITOR.
--- NOTE | 2020-01-24 13:11 | NUR ---
MS/RN NOTE THE PATIENT VERBALIZED NORCO BEING EFFECTIVE AND RATED PAIN 0/10.
[2020-01-24 14:55] LABS: BASOPHILS % (AUTO) 0.1 % (0.0-2.0); EOSINOPHILS % (AUTO) 1.1 % (0.0-6.0); HEMATOCRIT 32 % (33-45); LYMPHOCYTES # (AUTO) 1.3 /CMM (0.8-4.8); LYMPHOCYTES % (AUTO) 12.8 % (20.0-44.0); MEAN CORPUSCULAR HGB CONC 34 g/dl (31.0-36.0); MEAN CORPUSCULAR VOLUME 93 fL (82-100); MONOCYTES # (AUTO) 0.8 /CMM (0.1-1.30); MONOCYTES % (AUTO) 8.6 % (2.0-12.0); NEUTROPHILS # (AUTO) 7.6 /CMM (1.8-8.9); NEUTROPHILS % (AUTO) 77.4 % (43.0-81.0); PLATELET COUNT (AUTO) 288 /CMM (150-450); RED BLOOD CELL COUNT(AUTO) 3.43 MIL/uL (4.0-5.2); WHITE BLOOD COUNT (AUTO) 9.9 K/uL (4.3-11.0)
[2020-01-24 15:13] LABS: ALBUMIN 2.8 g/dL (3.4-5.0); BILIRUBIN,TOTAL 0.3 mg/dL (0.2-1.0); CALCIUM, SERUM 8.6 mg/dL (8.5-10.1); CREATININE 0.8 mg/dL (0.6-1.3); PHOSPHORUS 2.4 mg/dL (2.5-4.9); POTASSIUM 4.1 mmol/L (3.5-5.1); TOTAL PROTEIN, SERUM 6.8 g/dL (6.4-8.2)
[2020-01-24 15:20] LABS: THYROID STIMULATING HORMONE 0.296 uIU/mL (0.358-3.74)
[2020-01-24 16:32] VITALS: BP 104/68
--- NOTE | 2020-01-24 18:26 | NUR ---
RN NOTE THE PATIENT ALERT AND ORIENTED X3. IN ROOM AIR AND DENIES SOB. RESPIRATION REGULAR AND UNLABORED. THE PATIENT COMPLIANS OF GENERALIZED PAIN 04/17. NORCO 1 TAB PO IS GIVEN. WILL CONTINUE TO MONITOR. RAC G 20 PATENT AND NS INFUSING AT 75ML/HR AND NO S/S INFILTRATION NOTED. BED LOW AND LOCKED. SIDE RAILS UP X3. CALL LIGHT WITHIN REACH. WILL ENDORSE TO DIAPER MACHINE TENDER.
[2020-01-24 20:00] VITALS: BP 135/80
--- NOTE | 2020-01-24 20:05 | NUR ---
RN OPENING NOTE RECEIVED PATIENT FROM AM NURSE. PATIENT IN STABLE CONDITION, RESTING COMFORTABLY IN BED. NO ACUTE DISTRESS NOTED. IV FLUIDS RUNNING ORDERED. PT A/O X4, ON TELE MONITOR WITH SR NOTED. VITAL SIGNS ARE STABLE. NORCO WAS GIVEN BY AM NURSE AT 1823. REASSESSED THE PATIENT, NO COMPLAIN OF PAIN AT THE MOMENT. NO RESPIRATORY DISTRESS NOTED. ALL PATIENT NEEDS ATTENDED, SAFETY MAINTAINED, CALL LIGHT WITHIN REACH, WILL CONTINUE TO MONITOR.
[2020-01-25] VITALS: BP 130/81
[2020-01-25] MEDS: MORPHINE SULFATE INJ 2 MG/ML DISP.SYRIN IV PRN ×2 (01:37→07:28)
[2020-01-25 04:00] VITALS: BP 146/88
[2020-01-25] MEDS: HYDROCODONE/APAP 10/325MG 1 EA TABLET PO PRN (04:34)
--- NOTE | 2020-01-25 07:01 | NUR ---
RN CLOSING Notes PATIENT REMAINED IN STABLE CONDITION DURING MY SHIFT. ALL PATIENT NEEDS ATTENDED. PATIENT IS COMPLAINING OF PAIN, HAMIDA RN WILL CONTINUE PAIN MANAGEMENT. PATIENT SAFETY WAS MAINTAINED, CALL LIGHT WITHIN REACH, ALL SCHEDULED MEDS GIVEN ON TIME, PATIENT KEPT CLEAN AND DRY, ENDORSED TO AM NURSE FOR CONTINUITY OF CARE.
--- NOTE | 2020-01-25 08:07 | NUR ---
RN OPENING NOTES RECEIVED PATIENT AWAKE AND SLIGHTLY AGITATED. PT IS AOX4, VERBAL, AND AMBULATORY WITH ASSIST. SHE IS ON 2L OF OXYGEN VIA NC, TOLERATING WELL. TELE MONITOR SHOWING SR. PT IS APPEARS AGITATED AND IS REQUESTING HER PAIN MEDICATION, SKIN IS NOT INTACT, WILL ADDRESS WOUNDS PER WOUND CAREPLAN, IV SITE ON RAC 20 G IS PATENT AND INTACT, INFUSING NS AT 75 ML.HR. SAFETY MEASURES HAVE BEEN IMPLEMENTED, CALL LIGHT IS WITHIN REACH, BED IS IN LOWEST AND LOCKED POSITION, SIDE RAILS UP X2, WILL CONTINUE TO MONITOR FOR ANY CHANGES.
[2020-01-25 08:40] VITALS: BP 141/86
[2020-01-25] MEDS: NAPROXEN 500 MG TABLET PO SCH (09:00)
[2020-01-25] MEDS: LOSARTAN/HCTZ 50-12.5MG/ 1 EA TABLET PO SCH (09:00)
[2020-01-25 09:48] VITALS: BP 131/75
[2020-01-25] MEDS: AMLODIPINE BESYLATE 10 MG TABLET PO SCH (09:48)
[2020-01-25] MEDS: NICOTINE PATCH (14MG) 14 MG PATCH.TD24 TD SCH (09:49)
[2020-01-25] MEDS: CYCLOBENZAPRINE 10 MG TABLET PO SCH (09:49)
[2020-01-25] MEDS: SIMVASTATIN 20 MG TABLET PO SCH (09:49)
[2020-01-25] MEDS: Fluoxetine 10 mg capsule PO SCH (09:49)
[2020-01-25] MEDS: IV NS 0.9% 1,000 ML IV PRN (09:50)
--- NOTE | 2020-01-25 10:58 | NUR ---
RN CLOSING NOTES PT HAS LEFT AMA, DR. LEE MADE AWARE. PT STATES THAT SHE WANTS TO LEAVE AMA SO SHE CAN BE READMITTED AT THE SAME HOSPITAL HER PCP WORKS AT. EXPLAIN BENEFITS VS RISKS OF LEAVING. IV SITE WAS REMOVED. BELONGINGS LIST WAS CHECKED OFF, EXIT CARE WAS UTILIZED DURING DC PROCESS. PT WAS PICKED UP BY FRIEND IN PRIVATE CAR, SHE WAS WHEELED OUT VIA WHEEL CHAIR IN STABLE CONDITION. PT REFUSED DC WOUND DOCUMENTATION PICTURES
== END 2020-01-25 10:45 | disposition left against medical advice (07) | DRG 641 ==
LOC: ER 20:21 → TELE 22:41
PROVIDERS: ADMIT Nurse Practitioner Acute Care; ATTEND Nurse Practitioner Acute Care
DX: E86.0 Dehydration (principal); D68.59 Other primary thrombophilia; G89.4 Chronic pain syndrome; I10 Essential (primary) hypertension; R53.1 Weakness; E87.6 Hypokalemia; R73.9 Hyperglycemia, unspecified; M79.7 Fibromyalgia; D72.829 Elevated white blood cell count, unspecified; E78.5 Hyperlipidemia, unspecified; M19.90 Unspecified osteoarthritis, unspecified site; F41.9 Anxiety disorder, unspecified; R29.6 Repeated falls; Z96.649 Presence of unspecified artificial hip joint; F17.210 Nicotine dependence, cigarettes, uncomplicated
CPT/HCPCS: 36415; 70450-TC; 71045-TC; 80048-TC; 80053-TC; 80061-TC; 80076-TC; 81000-TC; 82962-TC; 83735-TC; 84100-TC; 84443-TC; 84484-TC; 85025-TC; 85730-TC; 87081-TC; 97116-TC; 97530-TC; G0378; J2270; J2405; J7030

== ENCOUNTER 2021-04-20 20:07 | Inpatient (IN) | payer MEDICARE, BC ==
[~2021-04-20] VITALS: Ht 162.6 cm; Wt 75.3 kg
[~2021-04-20 20:07] MED LIST changes: +AMLO-213 PO; -AMLO10TA7 PO; -FLUO10CA27 PO; +FLUO10CA29 PO
--- NOTE | 2021-04-20 20:25 | NUR ---
PATIENT BIBRA 85 FROM HOME C/O LEFT SHOULDER PAIN S/P (SURGERY 04/17/21). GIVEN 100MG FENT TRANSVERSE ABDOMINAL MUSCLE NURSE. +TACHY NOTED AT 124. DISCHARGED FROM [facility] TODAY. PATIENT IS A/O X 4, RR EVEN AND UNLABORED, NO SOB NOTED, PATIENT CONNECTED TO MONITOR.
[2021-04-20] MEDS ORDERED: HYDROMORPHONE INJ 2 MG/ML DISP.SYRIN IV ONE (20:30)
[2021-04-20] MEDS ORDERED: HYDROMORPHONE 1 MG/1 ML DISP.SYRIN ONE (20:34)
[2021-04-20 20:41] LABS: BASOPHILS % (AUTO) 0.2 % (0.0-2.0); EOSINOPHILS % (AUTO) 0.6 % (0.0-6.0); HEMATOCRIT 28 % (33-45); HEMOGLOBIN 9.4 g/dL (11.5-14.8); LYMPHOCYTES # (AUTO) 1.4 K/uL (0.8-4.8); LYMPHOCYTES % (AUTO) 13.5 % (20.0-44.0); MEAN CORPUSCULAR HGB CONC 34 g/dl (31.0-36.0); MEAN CORPUSCULAR VOLUME 100 fL (82-100); MONOCYTES # (AUTO) 0.8 K/uL (0.1-1.30); MONOCYTES % (AUTO) 8.1 % (2.0-12.0); NEUTROPHILS % (AUTO) 77.6 % (43.0-81.0); PLATELET COUNT (AUTO) 328 K/uL (150-450); WHITE BLOOD COUNT (AUTO) 10.3 K/uL (4.3-11.0)
[2021-04-20 20:49] LABS: CALCIUM, SERUM 8.4 mg/dL (8.5-10.1); CARBON DIOXIDE 25 mmol/L (21-32); CHLORIDE 103 mmol/L (98-107); CREATININE 0.7 mg/dL (0.6-1.3); GLUCOSE 95 mg/dL (74-106); POTASSIUM 3.5 mmol/L (3.5-5.1); SODIUM SERUM 138 mmol/L (136-145); UREA NITROGEN, BLOOD 18 mg/dL (7-18)
[2021-04-20] MEDS ORDERED: IV NS 0.9% 1,000 ML BAG IV ONE (21:00)
--- NOTE | 2021-04-20 21:05 | NUR ---
COVID SWAB TAKEN AND SENT TO LAB.
--- NOTE | 2021-04-20 21:13 | NUR ---
DR. PATTERSON PAGED PER DUTCH JAMIL ORDER.
[2021-04-20] MEDS ORDERED: IOHEXOL-350 100 ML VIAL IV ONE (21:56)
[2021-04-20] MEDS ORDERED: CT SWABBABLE VALVE TRANS SET 1 EA INFUS.SET MC ONE (21:57)
[2021-04-20] MEDS ORDERED: IV NS 0.9% 250 ML IV ONE (21:57)
--- NOTE | 2021-04-20 22:28 | NUR ---
PATINET TAKEN TO CT
[2021-04-20] MEDS ORDERED: ACETAMINOPHEN 325 MG TABLET PO PRN (23:00)
[2021-04-20] MEDS ORDERED: CLONIDINE HCL 0.1 MG TABLET PO PRN (23:00)
[2021-04-20] MEDS ORDERED: ZOLPIDEM TARTRATE 5 MG TABLET PO PRN (23:00)
[2021-04-20] MEDS ORDERED: HYDROCODONE/APAP 10/325MG TABLET PO PRN (23:00)
[2021-04-20] MEDS ORDERED: DIAZEPAM 5 MG TABLET PO PRN (23:00)
[2021-04-20] MEDS ORDERED: MAGNESIUM HYDROXIDE 30 ML UDC PO PRN (23:00)
[2021-04-20] MEDS ORDERED: ONDANSETRON HCL/PF 4 MG/2 ML VIAL IVP PRN (23:00)
[2021-04-20] MEDS ORDERED: METOPROLOL TARTRATE 25 MG TABLET PO SCH (23:00)
--- NOTE | 2021-04-20 23:00 | NUR ---
PATIENT REPOSITIONED TO MAKE COMFORTABLE AND RELIEVED LEFT SHOULDER PAIN
--- NOTE | 2021-04-21 00:02 | NUR ---
RADIOLOGIST MD MAYES SPEAKING TO ER MD ROBERT
--- NOTE | 2021-04-21 00:27 | NUR ---
TELE 048-3
--- NOTE | 2021-04-21 00:33 | NUR ---
REPORT GIVEN TO MARY VALENCIA
--- NOTE | 2021-04-21 00:45 | NUR ---
TELE ADMISSION NOTES PATIENT RECEIVED AT THIS TIME VIA STRETCHER. A/OX4. CRYING OF PAIN. NO S/S OF APPARENT DISTRESS. PATIENT AMBULATORY. V/S FOLLOWS: BP- 146/80, T- 98.8, RR- 18 BPM, WT- 152.7 LBS. PATIENT PUT ON TELE MONITOR READING SINUS TACHY. L. SHOULDER SLING IN PLACE. NO FLUIDS RUNNING AT THIS TIME. ID BAND ON PATIENT. BELONGINGS SIGNED. WILL CONTINUE TO MONITOR PATIENT.
--- NOTE | 2021-04-21 01:00 | NUR ---
PATIENT TRANSFERRED UNDER ACLS
[2021-04-21] MEDS: HYDROMORPHONE INJ 2 MG/ML DISP.SYRIN IV PRN ×2 (01:04→05:44)
--- NOTE | 2021-04-21 01:04 | NUR ---
PARTS RUNNER NOTES PATIENT GIVEN DILAUDID 1MG PRN. C/O 10/10 PAIN. WILL REASSESS.
--- NOTE | 2021-04-21 01:43 | NUR ---
PROCUREMENT ANALYST NOTES IT WAS ENDORSED TO ME BY ATTILA, DUTCH R, THAT PATIENT ANGIOGRAM CAME OUT AND FOUND RIGHT LOWER LOBE PE. PER ATTILA, DOCTOR YANIQUE WAS NOTIFIED. I ALSO MESSAGED DOCTOR TO FOLLOW UP WITH ORDERS. WILL FOLLOW THROUGH.
[2021-04-21 02:12] VITALS: BP 146/80
[2021-04-21] MEDS ORDERED: ENOXAPARIN SODIUM 80 MG/0.8 ML DISP.SYRIN SQ SCH (03:00)
[2021-04-21 04:00] VITALS: BP 147/93
--- NOTE | 2021-04-21 05:07 | NUR ---
DANCING MASTER NOTES PATIENT C/O HEADACHE. GIVEN TYLENOL PRN. WILL CONTINUE TO MONITOR.
--- NOTE | 2021-04-21 05:47 | NUR ---
PET RESORT CONCIERGE NOTES PATIENT KEPT YELLING OF PAIN AND MIGRAINE EVEN WITH TYLENOL. GIVEN DILAUDID 1MG 1 HOUR AFTER TYLENOL. WILL REASSESS.
--- NOTE | 2021-04-21 06:32 | NUR ---
CLERICAL SUPPORT CLOSING NOTE PATIENT IN BED WITH EYES CLOSED, EASY TO AROUSE. A/OX3, FORGETFUL. NO S/S OF APPARENT DISTRESS, TOLERATING ROOM AIR. NO C/O PAIN AT THIS TIME -- PAIN MANAGED WITH MEDICATIONS. NO FLUIDS RUNNING NO FLUIDS RUNNING AT THIS TIME. ALL NEEDS ATTENED, ALL SCHED MEDS ADMINISTERED. SAFETY KEPT IN PLACE THE WHOLE SHIFT. WILL ENDORSE CARE TO MORNING SHIFT RN.
[2021-04-21 07:16] LABS: BASOPHILS % (AUTO) 0.3 % (0.0-2.0); EOSINOPHILS % (AUTO) 1.1 % (0.0-6.0); HEMATOCRIT 29 % (33-45); HEMOGLOBIN 9.9 g/dL (11.5-14.8); LYMPHOCYTES # (AUTO) 1.8 K/uL (0.8-4.8); LYMPHOCYTES % (AUTO) 17.8 % (20.0-44.0); MEAN CORPUSCULAR HGB CONC 34 g/dl (31.0-36.0); MEAN CORPUSCULAR VOLUME 99 fL (82-100); MONOCYTES # (AUTO) 0.9 K/uL (0.1-1.30); MONOCYTES % (AUTO) 8.6 % (2.0-12.0); NEUTROPHILS # (AUTO) 7.2 K/uL (1.8-8.9); NEUTROPHILS % (AUTO) 72.2 % (43.0-81.0); PLATELET COUNT (AUTO) 376 K/uL (150-450); RED BLOOD CELL COUNT(AUTO) 2.92 MIL/uL (4.0-5.2)
[2021-04-21] MEDS ORDERED: PANTOPRAZOLE 40 MG TABLET.DR PO SCH (07:30)
[2021-04-21 07:52] LABS: ALBUMIN 2.7 g/dL (3.4-5.0); BILIRUBIN,TOTAL 0.7 mg/dL (0.2-1.0); CALCIUM, SERUM 8.8 mg/dL (8.5-10.1); CREATININE 0.7 mg/dL (0.6-1.3); MAGNESIUM 2.2 mg/dL (1.8-2.4); PHOSPHORUS 3.2 mg/dL (2.5-4.9); POTASSIUM 3.6 mmol/L (3.5-5.1); TOTAL PROTEIN, SERUM 6.7 g/dL (6.4-8.2)
--- NOTE | 2021-04-21 08:00 | NUR ---
TELE/RN OPENING NOTES RECEIVED PATIENT ON BED AWAKE ALERT AND ORIENTED X 3-4. PATIENT IS ON ROOM AIR. PATIENT IN NO APPARENT RESPIRATORY DISTRESS NOTED. NO COMPLAINED OF PAIN NOTED AT THIS TIME. TELE MONITOR READING SINUS TACHY 103 BPM. WILL CONTINUE TO MONITOR.
[2021-04-21 08:15] LABS: THYROID STIMULATING HORMONE 1.853 uIU/mL (0.358-3.74)
--- NOTE | 2021-04-21 08:26 | NUR ---
MARY Saleh will call when patient is ready for CT Scan of LEFT Shoulder w/o contrast pt agitated
[2021-04-21] MEDS ORDERED: DOCUSATE SODIUM 100 MG CAPSULE PO SCH (09:00)
[2021-04-21] MEDS ORDERED: AMLODIPINE BESYLATE 10 MG TABLET PO SCH (09:00)
[2021-04-21] MEDS ORDERED: Fluoxetine 10 mg capsule PO SCH (09:00)
--- NOTE | 2021-04-21 09:00 | NUR ---
RN NOTES PATIENT IS YELLING, SHOUTING AND CURSING NURSES. PATIENT IS CLAIMING THAT SHE HAD PINK SHIRT AND PRESCRIPTION EYE GLASSES BUT IS NOT IN THE BELONGING LIST. PATIENT COMPLAINED OF PAIN AND OFFERED NORCO 10MG 1 TAB PATIENT REFUSED AND VERBALIZED SHE ONLY TAKE PERCOCET IV. PATIENT ASK TO LEAVE AGAINST MEDICAL ADVISE, SIGNED, EXPLAINED THE RISK AND BENEFITS. PATIENT REFUSED TO SIGN THE BELONGING LIST, HOLLEY CHARGE NURSE WAS AWARE.
[2021-04-21] MEDS ORDERED: CYCLOBENZAPRINE 10 MG TABLET PO SCH (18:00)
[2021-04-21] MEDS ORDERED: SIMVASTATIN 20 MG TABLET PO SCH (22:00)
== END 2021-04-21 09:00 | disposition left against medical advice (07) | DRG 948 ==
LOC: ER 20:10 → TELE 04-21 00:40
PROVIDERS: ADMIT Internal Medicine; ATTEND Internal Medicine
DX: G89.18 Other acute postprocedural pain (principal); J98.11 Atelectasis; D68.59 Other primary thrombophilia; M25.512 Pain in left shoulder; Z20.822 Contact with and (suspected) exposure to COVID-19; J44.9 Chronic obstructive pulmonary disease, unspecified; Z86.16 Personal history of COVID-19; E11.9 Type 2 diabetes mellitus without complications; Z96.643 Presence of artificial hip joint, bilateral; Z98.1 Arthrodesis status; Z90.710 Acquired absence of both cervix and uterus; Z79.899 Other long term (current) drug therapy; I70.0 Atherosclerosis of aorta; E78.5 Hyperlipidemia, unspecified; G89.4 Chronic pain syndrome; I10 Essential (primary) hypertension; E53.8 Deficiency of other specified B group vitamins; E66.9 Obesity, unspecified; Z68.28 Body mass index [BMI] 28.0-28.9, adult; M79.7 Fibromyalgia; M19.90 Unspecified osteoarthritis, unspecified site; F32.9 Major depressive disorder, single episode, unspecified; F41.9 Anxiety disorder, unspecified; Z74.09 Other reduced mobility; Z96.612 Presence of left artificial shoulder joint; Z87.891 Personal history of nicotine dependence; D75.89 Other specified diseases of blood and blood-forming organs
CPT/HCPCS: 36415; 71045-TC; 80048-TC; 80053-TC; 80061-TC; 83540-TC; 83735-TC; 84100-TC; 84443-TC; 84484-TC; 85025-TC; 85378-TC; 87081-TC; C9803; G0378; J1170; J1650; J7030; J7050; Q9967

== ENCOUNTER 2023-04-02 17:07 | Emergency (ER) | payer MEDICARE, BC ==
[~2023-04-02] VITALS: Ht 162.6 cm; Wt 77.1 kg
--- NOTE | 2023-04-02 17:15 | NUR ---
RECEIVED PT 73 YRS FEMALE FROM HOME S/P TRIP AND FALL ACERATION ON FORHEAD
[2023-04-02] MEDS ORDERED: LIDOCAINE HCL/PF 1% 30 ML VIAL TP ONE (17:30)
[2023-04-02] MEDS ORDERED: oxyCODONE/APAP (5/325 MG) 1 UDTAB TABLET PO ONE (17:30)
--- NOTE | 2023-04-02 18:00 | NUR ---
TO CT SCAN OF HEAD
[2023-04-02] MEDS ORDERED: LIDOCAINE HCL/MPF 1% 30 ML VIAL IJ ONE (18:10)
[2023-04-02] MEDS ORDERED: oxyCODONE/APAP (5/325 MG) 1 UDTAB TABLET ONE (18:11)
--- NOTE | 2023-04-02 18:15 | NUR ---
SUTURE DONE BY DR. MADERA AT BED SIDE
--- NOTE | 2023-04-02 19:30 | NUR ---
Patient discharged to home in stable condition. Written and verbal after care instructions given. Patient verbalizes understanding of instruction.
[2023-04-02 19:34] VITALS: BP 125/65; TEMP 97; O2SAT 96
== END 2023-04-02 19:50 | disposition home or self-care (01) ==
LOC: ER 17:24
DX: S01.81XA Laceration without foreign body of other part of head, initial encounter (principal); I10 Essential (primary) hypertension; J44.9 Chronic obstructive pulmonary disease, unspecified; E11.9 Type 2 diabetes mellitus without complications; F17.200 Nicotine dependence, unspecified, uncomplicated; Z96.643 Presence of artificial hip joint, bilateral; Z90.710 Acquired absence of both cervix and uterus; Z60.2 Problems related to living alone; W18.30XA Fall on same level, unspecified, initial encounter; Y93.89 Activity, other specified; Y92.009 Unspecified place in unspecified non-institutional (private) residence as the place of occurrence of the external cause; Y99.8 Other external cause status
CPT/HCPCS: 99284; 70450; 12014; J3490 ×2